=== PATIENT | female | born 1990 | race African-American/Black ===

== ENCOUNTER 2022-02-24 04:15 | Inpatient (IN) | payer OTHER ==
[2022-02-24] MEDS ORDERED: ELECTROLYTE-148 SOLN 1,000 ML IV SCH (17:00)
[2022-02-24] MEDS ORDERED: ACETAMINOPHEN INJECTION 100 ML IVPB ONE (20:23)
[2022-02-24] MEDS ORDERED: OXYTOCIN 20 UNITS in 0.9% NS 20 UNIT/1,000 ML INFUS.BAG IV ONE (20:23)
[2022-02-24 20:24] VITALS: BMI 28.2
[2022-02-24] MEDS ORDERED: ceFAZolin SODIUM 1 GM VIAL ONE (20:26)
[2022-02-24] MEDS ORDERED: morphine SULFATE/PF 1 MG/2 ML (2cc Syringe - QUVA) ONE (20:26)
[2022-02-24] MEDS ORDERED: SODIUM CHLORIDE 0.9% P/F 10 ML VIAL IJ ONE (20:27)
[2022-02-24] MEDS ORDERED: CITRIC ACID/SODIUM CITRATE 30 ML UNIT-DOSE CUP PO ONE (21:00)
[2022-02-24] MEDS ORDERED: ONDANSETRON 4 MG/2 ML VIAL ONE (21:48)
[2022-02-24 22:10] LABS: CORD HCO3 25.4 mmHg (20-29); CORD PCO2 53.8 mmHg (30-78); CORD pH 7.292 (7.14-7.44)
[2022-02-24 22:16] LABS: CORD BASE EXCESS -4.5 mmol/L (0-2); CORD HCO3 21.4 mmHg (20-29); CORD PCO2 42.2 mmHg (30-78); CORD pH 7.323 (7.14-7.44)
[2022-02-24] MEDS ORDERED: METHYLERGONOVINE MALEATE 0.2 MG/1 ML AMP IM PRN (22:22)
[2022-02-24] MEDS ORDERED: ACETAMINOPHEN 325 MG TABLET (FP) PO PRN (22:22)
[2022-02-24] MEDS ORDERED: ONDANSETRON 4 MG/2 ML VIAL IVPUSH PRN (22:39)
[2022-02-24] MEDS: OXYTOCIN 20 UNITS in 0.9% NS 20 UNIT/1,000 ML INFUS.BAG IV SCH (23:45)
[2022-02-25] MEDS ORDERED: OXYTOCIN 20 UNITS in 0.9% NS 20 UNIT/1,000 ML INFUS.BAG IV ONE (00:03)
[2022-02-25] MEDS: OXYTOCIN 20 UNITS in 0.9% NS 20 UNIT/1,000 ML INFUS.BAG IV SCH (06:20)
[2022-02-25 08:40] LABS: BASO % 0.3 % (0-2.0); EOS % 0.3 % (0-4.5); HEMATOCRIT 31.5 % (32.4-45.2); LYMPH % 11.4 % (8-40); MCHC 31.8 g/dl (32.0-36.0); MEAN CELL VOLUME 69.1 fl (80-96); MEAN PLT VOLUME 8.6 fl (7.5-11.1); MONO % 7.6 % (3.8-10.2); NEUT % 80.4 % (42.8-82.8); PLATELET COUNT 228 10^3/uL (134-434); RBC 4.56 M/mm3 (3.60-5.2); RDW 20.4 % (11.6-15.6); WHITE BLOOD COUNT 9.1 K/mm3 (4.0-10.0)
[2022-02-25] MEDS: ENOXAPARIN NA (PORCINE) 40 MG/0.4 ML DISP.SYRIN SQ SCH (09:46)
[2022-02-25] MEDS ORDERED: oxyCODONE HCL 5 MG TABLET PO PRN ×2 (10:22)
[2022-02-25] MEDS: IBUPROFEN 600 MG TABLET (FP) PO PRN ×2 (13:05→19:31)
[2022-02-25] MEDS: SIMETHICONE 80 MG TAB.CHEW (FP) PO PRN (19:31)
[2022-02-25 22:08] VITALS: RESP 16
[2022-02-25] MEDS ORDERED: BISACODYL 10 MG SUPP.RECT RC PRN (22:22)
[2022-02-26] MEDS: IBUPROFEN 600 MG TABLET (FP) PO PRN ×3 (04:42→20:11)
[2022-02-26] MEDS: SIMETHICONE 80 MG TAB.CHEW (FP) PO PRN ×3 (04:42→20:11)
[2022-02-26] MEDS: ENOXAPARIN NA (PORCINE) 40 MG/0.4 ML DISP.SYRIN SQ SCH (09:25)
[2022-02-27 08:12] VITALS: BP 118/74; PULSE 96; TEMP 98
[2022-02-27 08:27] LABS: BASO % 0.4 % (0-2.0); EOS % 1.9 % (0-4.5); HEMATOCRIT 31.3 % (32.4-45.2); HEMOGLOBIN 10.3 GM/dL (10.7-15.3); LYMPH % 15.1 % (8-40); MCH 22.4 pg (25.7-33.7); MCHC 32.8 g/dl (32.0-36.0); MEAN CELL VOLUME 68.3 fl (80-96); MEAN PLT VOLUME 8.4 fl (7.5-11.1); MONO % 6.1 % (3.8-10.2); NEUT % 76.5 % (42.8-82.8); PLATELET COUNT 278 10^3/uL (134-434); RBC 4.58 M/mm3 (3.60-5.2); RDW 20.5 % (11.6-15.6); WHITE BLOOD COUNT 7.6 K/mm3 (4.0-10.0)
[2022-02-27] MEDS: SIMETHICONE 80 MG TAB.CHEW (FP) PO PRN (09:11)
[2022-02-27] MEDS: ENOXAPARIN NA (PORCINE) 40 MG/0.4 ML DISP.SYRIN SQ SCH (09:11)
[2022-02-27 09:18] LABS: ANISOCYTOSIS 3+; MACROCYTOSIS 0
== END 2022-02-27 12:42 | disposition home or self-care (01) | DRG 540 ==
LOC: JDEL 04:15 → JLDR 19:20 → J3W 02-25 00:30
PROVIDERS: ADMIT Obstetrics & Gynecology; ATTEND Obstetrics & Gynecology
PROC: 10D00Z1 Extraction of Products of Conception, Low, Open Approach (ICD-10-PCS; principal; 2022-02-24)
DX: O34.211 Maternal care for low transverse scar from previous cesarean delivery (principal); N85.8 Other specified noninflammatory disorders of uterus; O99.824 Streptococcus B carrier state complicating childbirth; Z3A.39 39 weeks gestation of pregnancy; Z37.0 Single live birth
CPT/HCPCS: 36415; 36600; 80048; 82803; 85025; 85610; 85730; 86780; 86850; 86900; 86901; 88307-TC; C9803-CS; U0003; U0005

== ENCOUNTER 2022-03-17 13:51 | Emergency (ER) | payer OTHER ==
[2022-03-17 14:05] VITALS: BP 111/76; PULSE 83; RESP 18; TEMP 98.2; BMI 28.2
[2022-03-17] MEDS ORDERED: ACETAMINOPHEN 1000 MG/100 ML BAG IVPB ONE (15:26)
[2022-03-17] MEDS ORDERED: ACETAMINOPHEN INJECTION 100 ML IVPB ONE (15:37)
[2022-03-17 16:16] LABS: BASO % 1.2 % (0-2.0); EOS % 3.2 % (0-4.5); HEMATOCRIT 35.3 % (32.4-45.2); HEMOGLOBIN 10.7 GM/dL (10.7-15.3); LYMPH % 24.6 % (8-40); MCH 20.6 pg (25.7-33.7); MCHC 30.4 g/dl (32.0-36.0); MEAN CELL VOLUME 67.7 fl (80-96); MEAN PLT VOLUME 8.5 fl (7.5-11.1); MONO % 4.4 % (3.8-10.2); NEUT % 66.6 % (42.8-82.8); PLATELET COUNT 456 10^3/uL (134-434); RBC 5.21 M/mm3 (3.60-5.2); RDW 19.3 % (11.6-15.6)
[2022-03-17 16:34] LABS: ALBUMIN 3.2 g/dl (3.4-5.0); BLOOD UREA NITROGEN 10.2 mg/dL (7-18)
[2022-03-17 16:37] LABS: CREATININE 0.7 mg/dL (0.55-1.3)
[2022-03-17 16:39] LABS: BILIRUBIN,TOTAL 0.1 mg/dL (0.2-1); TOT PROT 7.3 g/dl (6.4-8.2)
[2022-03-17 16:52] LABS: EPI CELLS 5 /uL (0-25.1); HYALINE CASTS 1 /uL (0-3.1); PH,URINE 6.5 (5.0-8.0); URINE APPEARANCE CLEAR; URINE BACTERIA 52 /uL (0-1359); URINE BILIRUBIN NEGATIVE (NEGATIVE); URINE COLOR YELLOW; URINE GLUCOSE (UA) NEGATIVE (NEGATIVE); URINE KETONE NEGATIVE (NEGATIVE); URINE LEUK ESTERASE TRACE (NEGATIVE); URINE NITRITE NEGATIVE (NEGATIVE); URINE PROTEIN NEGATIVE (NEGATIVE); URINE RBC 7 /uL (0-23.9); URINE UROBILINOGEN 0.2 mg/dL (0.2-1.0); URINE WBC 7 /uL (0-25.8)
[2022-03-17] MEDS ORDERED: CEPHALEXIN MONOHYDRATE 500 MG CAPSULE (UD) PO ONE (17:03)
[2022-03-17 17:18] LABS: ANISOCYTOSIS 3+; MACROCYTOSIS 0; OVALOCYTE 1+; TARGET CELLS 1+; TEAR DROP CELLS 1+
[2022-03-17] MEDS ORDERED: CEPHALEXIN MONOHYDRATE 500 MG CAPSULE (UD) ONE (17:32)
== END 2022-03-17 18:07 | disposition home or self-care (01) ==
LOC: JER 13:51
DX: T81.31XA Disruption of external operation (surgical) wound, not elsewhere classified, initial encounter (principal)
CPT/HCPCS: 36415; 76705-TC; 80053; 81003; 85025; 87086; 87186; 99284-25

== ENCOUNTER 2022-04-06 17:49 | Emergency (ER) | payer OTHER ==
[2022-04-06 18:09] VITALS: BP 102/67; PULSE 82; RESP 20; TEMP 98; BMI 28.2
[2022-04-06] MEDS ORDERED: DEXAMETHASONE LIQUID 0.5 MG/5 ML PO ONE (18:38)
[2022-04-06] MEDS ORDERED: LORATADINE 10 MG TABLET PO ONE (18:38)
[2022-04-06] MEDS ORDERED: FAMOTIDINE 20 MG TABLET PO ONE (18:38)
[2022-04-06] MEDS ORDERED: DEXAMETHASONE 4 MG TABLET (FP) ONE (18:42)
[2022-04-06] MEDS ORDERED: FAMOTIDINE 20 MG TABLET ONE (18:42)
[2022-04-06] MEDS ORDERED: LORATADINE 10 MG TABLET ONE (18:42)
== END 2022-04-06 18:45 | disposition home or self-care (01) ==
LOC: JERFT 17:49 → JER 17:49 → JERFT 18:45
DX: L50.9 Urticaria, unspecified (principal)
CPT/HCPCS: 99283-25

== ENCOUNTER 2023-06-25 09:14 | Emergency (ER) | payer OTHER ==
[2023-06-25 09:38] VITALS: BP 135/86; PULSE 72; RESP 17; TEMP 98.1; BMI 29.8
[2023-06-25] MEDS ORDERED: KETOROLAC TROMETHAMINE 30 MG/1 ML VIAL ONE (11:42)
[2023-06-25] MEDS: KETOROLAC TROMETHAMINE 30 MG/1 ML VIAL IM ONE (11:51)
== END 2023-06-25 11:52 | disposition home or self-care (01) ==
LOC: JERFT 09:14
PROC: 0H9FXZZ Drainage of Right Hand Skin, External Approach (ICD-10-PCS; principal; 2023-06-25)
PROC: 3E0233Z Introduction of Anti-inflammatory into Muscle, Percutaneous Approach (ICD-10-PCS; 2023-06-25)
DX: M79.644 Pain in right finger(s) (principal); L03.011 Cellulitis of right finger
CPT/HCPCS: 87070; 87076; 87186; 87205; 99284-25